=== PATIENT | male | born 1985 | race Caucasian/White ===

== ENCOUNTER 2017-12-21 18:20 | Emergency (ER) | payer BC ==
[~2017-12-21] VITALS: Ht 188 cm; Wt 81.6 kg
[2017-12-21 18:32] VITALS: BP_SYST 147
== END 2017-12-21 20:00 | disposition home or self-care (01) ==
LOC: SED 18:20
DX: R53.1 Weakness (principal); R42 Dizziness and giddiness; F32.9 Major depressive disorder, single episode, unspecified; F41.9 Anxiety disorder, unspecified; R03.0 Elevated blood-pressure reading, without diagnosis of hypertension; Z86.718 Personal history of other venous thrombosis and embolism; Z88.1 Allergy status to other antibiotic agents
CPT/HCPCS: 99281